=== PATIENT | female | born 1965 | race Hispanic/Latino ===

== ENCOUNTER 2016-08-30 14:22 | Emergency (ER) | payer MEDICAID, OTHER ==
[2016-08-30 14:22] VITALS: BMI 27.8
[2016-08-30] MEDS ORDERED: HYDROmorphone 1 mg/ml ISec IVP STA (15:20)
--- NOTE | 2016-08-30 15:29 | ED PDOC ---
Arrival/HPI - General Chief Complaint: Abdominal Pain Time Seen by Provider: 08/30/16 15:07 Historian: Patient - History of Present Illness Narrative History of Present Illness (Text): 08/30/16 15:23 51yo female with PMHx of hernia, diverticulosis, gastritis who present with abdominal pain worse around her hernia repair scar, radiating to her back. She notes 3 hernia repair surgery 2years ago. States she chronic pain in the area, but it became worse yesterday. Pain is associated with nausea. Notes that her BM is usually diarrhea like, but she had hard BM today. Also notes urinary frequency x days. She denies melena, hematemesis, hematochezia, fever, chills, hematuria, dysuria, vomiting, chest pain, any other complaint. Past Medical History - Provider Review Nursing Documentation Reviewed: Yes - Infectious Disease Hx of Infectious Diseases: None - Tetanus Immunization Tetanus Immunization: Unknown - Cardiac Hx Cardiac Disorders: No - Pulmonary Hx Asthma: Yes - Neurological Hx Neurological Disorder: No - HEENT Hx HEENT Disorder: No - Renal Hx Renal Disorder: No - Endocrine/Metabolic Hx Endocrine Disorders: No - Hematological/Oncological Hx Blood Disorders: No - Integumentary Hx Dermatological Disorder: No - Musculoskeletal/Rheumatological Hx Musculoskeletal Disorders: No - Gastrointestinal Hx Diverticulitis: Yes Hx Gastrointestinal Ulcer: Yes Hx Pancreatitis: Yes - Genitourinary/Gynecological Hx Genitourinary Disorders: No - Psychiatric Hx Anxiety: Yes Hx Depression: Yes Hx Substance Use: No - Surgical History Hx Cholecystectomy: Yes Other/Comment: colon resection - Anesthesia Hx Anesthesia: Yes - Suicidal Assessment Feels Threatened In Home Enviroment: No Family/Social History - Physician Review Nursing Documentation Reviewed: Yes Family/Social History: Unknown Family HX Smoking Status: Former Smoker Hx Alcohol Use: Yes Frequency of alcohol use: Socially Hx Substance Use: No Allergies/Home Meds Allergies/Adverse Reactions: Allergies amoxicillin Allergy (Severe, Verified 08/30/16 14:59) ANGIOEDEMA Home Medications: Home Meds Medication Instructions Recorded Confirmed Alprazolam [Xanax] 2 mg PO QID 09/26/14 08/30/16 Sertraline [Zoloft] 200 mg PO DAILY 09/26/14 08/30/16 Review of Systems - Physician Review All systems were reviewed & negative as marked: Yes - Review of Systems Constitutional: Normal Eyes: Normal ENT: Normal Respiratory: Normal Cardiovascular: Normal Gastrointestinal: Abdominal Pain, Nausea. absent: Constipation, Diarrhea, Vomiting, Hematochezia, Hematemesis Genitourinary Female: Normal Musculoskeletal: Normal Skin: Normal Neurological: Normal Endocrine: Normal Hemo/Lymphatic: Normal Psychiatric: Normal Physical Exam Vital Signs Reviewed: Yes Vital Signs Temp Pulse Resp BP Pulse Ox 08/30/16 16:44 98.1 F 69 18 106/75 98 08/30/16 15:48 75 17 104/79 98 08/30/16 15:00 98.2 F 90 17 110/73 97 Temperature: Afebrile Blood Pressure: Normal Pulse: Regular Respiratory Rate: Normal Appearance: Positive for: Well-Appearing, Non-Toxic, Comfortable Pain Distress: None Mental Status: Positive for: Alert and Oriented X 3 - Systems Exam Head: Present: Atraumatic, Normocephalic Pupils: Present: PERRL Extroacular Muscles: Present: EOMI Conjunctiva: Present: Normal Mouth: Present: Moist Mucous Membranes Neck: Present: Normal Range of Motion Respiratory/Chest: Present: Clear to Auscultation, Good Air Exchange. No: Respiratory Distress, Accessory Muscle Use Cardiovascular: Present: Regular Rate and Rhythm, Normal S1, S2. No: Murmurs Abdomen: Present: Tenderness (RUQ/Mid abodminal and epigastric tenderness), Normal Bowel Sounds, Scars (3 healed surgical scars ntoed. No sign of infection) , Other (Soft). No: Distention, Peritoneal Signs, Rebound, Guarding, McBurney' s Point Tender, Rovsing's Sign Present Back: Present: Normal Inspection Upper Extremity: Present: Normal Inspection. No: Cyanosis, Edema Lower Extremity: Present: Normal Inspection. No: Edema Neurological: Present: GCS=15, CN II-XII Intact, Speech Normal Skin: Present: Warm, Dry, Normal Color. No: Rashes Psychiatric: Present: Alert, Oriented x 3, Normal Insight, Normal Concentration Medical Decision Making ED Course and Treatment: 08/30/16 16:50 PT presented to ED for stated history. Her pain improved in ED with medication. she was comfortable and hemodynamically stable. Her lab was unremarkable. Elevated LFT was comparable to her previous lab. Abdominal/ Pelvic CT - No acute finding. All result was DW the pt. she was DC home with a rx of Pepcid and Tramadol. She states that she have a GI and was advised to f/u with her GI for further outpt evaluation. Advised to otherwise return to ED for any worsening or new symptoms. - Lab Interpretations Lab Results: 08/30/16 15:25 08/30/16 15:25 Lab Results 08/30/16 15:25: Sodium 139, Potassium 3.8, Chloride 106, Carbon Dioxide 27, Anion Gap 10, BUN 16, Creatinine 1.0, Est GFR ( Amer) > 60, Est GFR (Non- Af Amer) 59, Random Glucose 100, Calcium 9.0, Total Bilirubin 0.4, AST 63 H, ALT 70 H, Alkaline Phosphatase 82, Total Protein 7.3, Albumin 3.9, Globulin 3.4 , Albumin/Globulin Ratio 1.1 08/30/16 15:25: Urine Color Yellow, Urine Appearance Clear, Urine pH 5.5, Ur Specific [place] >= 1.030, Urine Protein Negative, Urine Glucose (UA) Negative, Urine Ketones Negative, Urine Blood Negative, Urine Nitrate Negative, Urine Bilirubin Negative, Urine Urobilinogen 0.2, Ur Leukocyte Esterase Negative 08/30/16 15:25: PT 10.7, INR 0.99, APTT 27.0 08/30/16 15:25: WBC 8.0 D, RBC 4.02, Hgb 11.8 L, Hct 34.7 L, MCV 86.3, MCH 29.4 , MCHC 34.0, RDW 13.1, Plt Count 225, MPV 9.3, Gran % 71.6 H, Lymph % (Auto) 18.7 L, [place] % (Auto) 7.7 H, Eos % (Auto) 1.6, Baso % (Auto) 0.4, Gran # 5.75, Lymph # 1.5, [place] # 0.6, Eos # 0.1, Baso # 0.03 - RAD Interpretation Radiology Orders: 08/30/16 15:19 ABD & PELVIS W/O PO OR IV CONT [CT] Stat - Medication Orders Current Medication Orders: Discontinued Medications Hydromorphone HCl (Dilaudid) 1 mg IVP STAT STA Stop: 08/30/16 15:21 Last Admin: 08/30/16 15:50 Dose: 1 mg Ondansetron HCl (Zofran Inj) 4 mg IVP STAT STA Stop: 08/30/16 15:21 Last Admin: 08/30/16 15:51 Dose: 4 mg Disposition/Present on Arrival - Present on Arrival Any Indicators Present on Arrival: No History of DVT/PE: No History of Uncontrolled Diabetes: No Urinary Catheter: No History of Decub. Ulcer: No History Surgical Site Infection Following: None - Disposition Have Diagnosis and Disposition been Completed?: Yes Diagnosis: Abdominal pain Disposition: HOME/ ROUTINE Disposition Time: 16:30 Patient Plan: Discharge Patient Problems: Current Active Problems Problem Status Onset Abdominal pain Acute Condition: STABLE Discharge Instructions (ExitCare): Abdominal Pain (ED) Additional Instructions: Follow up with your doctor/[employer] Return to ED for any new or worsening symptoms Prescriptions: Famotidine [Pepcid] 40 mg PO DAILY #10 tab traMADol [Ultram] 50 mg PO TID #9 tab Referrals: Ranjith Emery MD [Primary Care Provider] - Follow up with primary Francis Holley MD [Staff Provider] - Follow up with primary
[2016-08-30 15:57] LABS: ADD MANUAL DIFF? NO
[2016-08-30 15:59] LABS: PH,URINE 5.5 (4.7-8.0); URINE BILIRUBIN NEGATIVE (NEGATIVE); URINE BLOOD NEGATIVE (NEGATIVE); URINE GLUCOSE (UA) NEGATIVE (NEGATIVE); URINE KETONE NEGATIVE (NEGATIVE); URINE LEUKOCYTE ESTERASE NEGATIVE Leu/uL (NEGATIVE); URINE PROTEIN NEGATIVE mg/dL (<30 mg/dL); URINE UROBILINOGEN 0.2 E.U./dL (<1 E.U./dL)
[2016-08-30 16:01] LABS: URINE APPEARANCE CLEAR (CLEAR); URINE COLOR YELLOW (YELLOW)
[2016-08-30 16:03] LABS: BASO # 0.03 K/mm3 (0.0-2.0); BASO % 0.4 % (0.0-3.0); EOS # 0.1 (0.0-0.7); EOS % 1.6 % (1.5-5.0); GRAN # 5.75 (1.4-6.5); GRAN % 71.6 % (50.0-68.0); HEMATOCRIT 34.7 % (36.0-48.0); LYMPH # 1.5 (1.2-3.4); LYMPH % 18.7 % (22.0-35.0); MEAN CELL VOLUME 86.3 fL (80.0-105.0); MEAN CORPUSCULAR HEMOGLOBIN 29.4 pg (25.0-35.0); MEAN PLATELET VOLUME 9.3 fl (7.0-11.0); MONO # 0.6 (0.1-0.6); MONO % 7.7 % (1.0-6.0); PLATELET COUNT 225 10^3/uL (120.0-450.0); RED CELL DISTRIBUTION WIDTH 13.1 % (11.5-14.5)
[2016-08-30 16:13] LABS: ALB/GLOB RATIO 1.1 (1.1-1.8); ALKALINE PHOSPHATASE 82 U/L (38-133); ALT/SGPT 70 U/L (7-56); AST/SGOT 63 U/L (15-39); BILIRUBIN,TOTAL 0.4 mg/dL (0.2-1.3); BLOOD UREA NITROGEN 16 mg/dL (7-21); CARBON DIOXIDE 27 mmol/L (21-33); CHLORIDE 106 mmol/L (98-107); GFR AFRICAN-AMERICAN > 60; GLUCOSE,RANDOM 100 mg/dL (70-110); POTASSIUM 3.8 mmol/L (3.6-5.0); SODIUM 139 mmol/L (132-148); TOTAL PROTEIN 7.3 g/dL (5.8-8.3)
[2016-08-30 16:18] LABS: INR 0.99 (0.93-1.08)
--- NOTE | 2016-08-30 16:26 | CT ---
PROCEDURE: CT Abdomen and Pelvis without intravenous contrast HISTORY: abdominal pain COMPARISON: None. TECHNIQUE: Without contrast.. Contrast Dose: Radiation dose: Total exam DLP = 890 mGy-cm. This CT exam was performed using one or more of the following dose reduction techniques: Automated exposure control, adjustment of the mA and/or kV according to patient size, and/or use of iterative reconstruction technique. FINDINGS: LOWER THORAX: Unremarkable. LIVER: Unremarkable. No gross lesion or ductal dilatation. GALLBLADDER AND BILE DUCTS: Gallbladder removed PANCREAS: Unremarkable. No gross lesion or ductal dilatation. SPLEEN: Unremarkable. ADRENALS: Unremarkable. No mass. KIDNEYS AND URETERS: Unremarkable. No hydronephrosis. No solid mass. VASCULATURE: Unremarkable. No aortic aneurysm. BOWEL: Unremarkable. No obstruction. No gross mural thickening. There is moderate diverticulosis without evidence of diverticulitis APPENDIX: Unremarkable. Normal appendix. PERITONEUM: Unremarkable. No free fluid. No free air. LYMPH NODES: Unremarkable. No enlarged lymph nodes. BLADDER: Unremarkable. REPRODUCTIVE: Unremarkable. BONES: No acute fracture. OTHER FINDINGS: None. IMPRESSION: No acute findings
[2016-08-30 16:45] VITALS: TEMP 98.1
[2016-08-30 17:46] VITALS: BP 112/70; PULSE 70; RESP 17; O2SAT 100
== END 2016-08-30 17:44 | disposition home or self-care (01) ==
LOC: ED 14:22
DX: R10.9 Unspecified abdominal pain (principal)
CPT/HCPCS: 74176; 80053; 81003; 85025; 85610; 85730; 96374; 96375; 99284; J1170; J2405

== ENCOUNTER 2016-09-24 10:51 | Emergency (ER) | payer OTHER ==
[2016-09-24 10:51] VITALS: BMI 27.8
[2016-09-24 10:58] VITALS: BP 123/81; PULSE 94; RESP 16; TEMP 98.1; O2SAT 96
--- NOTE | 2016-09-24 11:23 | ED PDOC ---
Arrival/HPI - General Chief Complaint: Lower Extremity Problem/Injury Time Seen by Provider: 09/24/16 11:19 Historian: Patient - History of Present Illness Narrative History of Present Illness (Text): 09/24/16 11:20 This 51 yo female presents to this ED c/o left ankle pain and swelling x 9 hours. Patient stated she twisted ankle. Denies fall. Time/Duration: Other (9 hours) Quality: Aching Context: Home Past Medical History - Provider Review Nursing Documentation Reviewed: Yes - Infectious Disease Hx of Infectious Diseases: None - Tetanus Immunization Tetanus Immunization: Unknown - Cardiac Hx Cardiac Disorders: No - Pulmonary Hx Asthma: Yes - Neurological Hx Neurological Disorder: No - HEENT Hx HEENT Disorder: No - Renal Hx Renal Disorder: No - Endocrine/Metabolic Hx Endocrine Disorders: No - Hematological/Oncological Hx Blood Disorders: No - Integumentary Hx Dermatological Disorder: No - Musculoskeletal/Rheumatological Hx Musculoskeletal Disorders: No - Gastrointestinal Hx Diverticulitis: Yes Hx Gastrointestinal Ulcer: Yes Hx Pancreatitis: Yes - Genitourinary/Gynecological Hx Genitourinary Disorders: No - Psychiatric Hx Anxiety: Yes Hx Depression: Yes Hx Substance Use: No - Surgical History Hx Cholecystectomy: Yes Other/Comment: colon resection - Anesthesia Hx Anesthesia: Yes - Suicidal Assessment Feels Threatened In Home Enviroment: No Family/Social History - Physician Review Nursing Documentation Reviewed: Yes Family/Social History: No Known Family HX Smoking Status: Former Smoker Hx Alcohol Use: Yes Hx Substance Use: No Allergies/Home Meds Allergies/Adverse Reactions: Allergies amoxicillin Allergy (Severe, Verified 09/24/16 10:52) ANGIOEDEMA Home Medications: Home Meds Medication Instructions Recorded Confirmed Alprazolam [Xanax] 2 mg PO QID 09/26/14 09/24/16 Sertraline [Zoloft] 200 mg PO DAILY 09/26/14 09/24/16 Levocetirizine Dihydrochloride 1 tab PO DAILY 09/24/16 09/24/16 [Xyzal] Review of Systems - Review of Systems Constitutional: Normal. absent: Fatigue, Weight Change, Fevers Eyes: Normal ENT: Normal Respiratory: Normal Cardiovascular: Normal Gastrointestinal: Normal Genitourinary Female: Normal Musculoskeletal: Other (left ankle pain) Skin: Normal Neurological: Normal Endocrine: Normal Hemo/Lymphatic: Normal Psychiatric: Normal Physical Exam Vital Signs Temp Pulse Resp BP Pulse Ox 09/24/16 10:55 98.1 F 94 H 16 123/81 96 Temperature: Afebrile Blood Pressure: Normal Pulse: Regular Respiratory Rate: Normal Appearance: Positive for: Well-Appearing, Non-Toxic, Comfortable Pain Distress: None Mental Status: Positive for: Alert and Oriented X 3 - Systems Exam Head: Present: Atraumatic, Normocephalic Pupils: Present: PERRL Extroacular Muscles: Present: EOMI Conjunctiva: Present: Normal Mouth: Present: Moist Mucous Membranes Back: Present: Normal Inspection. No: CVA Tenderness Upper Extremity: Present: Normal Inspection, Normal ROM, NORMAL PULSES, Neurovascularly Intact, Capillary Refill < 2s Lower Extremity: Present: NORMAL PULSES, Normal ROM, Tenderness, Swelling ((+) left lateral malleoulus is mild swelling, and tender. No deformity). No: Edema , CALF TENDERNESS Neurological: Present: GCS=15, CN II-XII Intact, Speech Normal, Motor Func Grossly Intact, Normal Sensory Function, Normal Cerebellar Funct, Gait Normal Skin: Present: Warm, Dry, Normal Color. No: Rashes Psychiatric: Present: Alert, Oriented x 3 Medical Decision Making ED Course and Treatment: 09/24/16 11:23 Patient refused Toradol IM. She stated that Dilaudid is the only medication that works for her 09/24/16 11:51 Re-evaluation. Patient feels better. Discussed results and plan with patient who expresses understanding. All questions answered and there is agreement with the plan to discharge home with instructions. Patient stable for discharge. Return if symptoms persist or worsen. Air cast and crutches Re-evaluation Time: 11:52 Reassessment Condition: Re-examined, Improved - RAD Interpretation Narrative RAD Interpretations (Text): 09/24/16 11:52 ankle x-rays: No Fx. or sublux. Tib Fib x-rays: No fx or sublux. Radiology Orders: 09/24/16 11:24 ANKLE LEFT 3 VIEWS ROUTINE [RAD] Stat TIBIA FIBULA LEFT [RAD] Stat - Medication Orders Current Medication Orders: Discontinued Medications Tramadol/Acetaminophen (Ultracet 37.5/325 Mg) 1 tab PO STAT STA Stop: 09/24/16 11:26 Last Admin: 09/24/16 11:44 Dose: 1 tab Disposition/Present on Arrival - Present on Arrival Any Indicators Present on Arrival: No History of DVT/PE: No History of Uncontrolled Diabetes: No Urinary Catheter: No History of Decub. Ulcer: No History Surgical Site Infection Following: None - Disposition Have Diagnosis and Disposition been Completed?: Yes Diagnosis: Left ankle strain Disposition: HOME/ ROUTINE Disposition Time: 11:53 Patient Plan: Discharge Condition: GOOD Discharge Instructions (ExitCare): Ankle Sprain (ED) Additional Instructions: Call private doctor for follow up visit in 1-2 days. Take medication as instructed. v Return to emergency if symptoms worsen. air cast to be removed at bedtime. Prescriptions: Acetaminophen with Codeine [Tylenol with Codeine #3 Tablet] 1 each PO Q6H PRN # 10 tablet PRN Reason: Pain, Severe (8-10) Referrals: Ranjith Emery MD [Primary Care Provider] - Follow up with primary Jenna Mijares DPM [Staff Provider] - Follow up with primary Forms: WORK NOTE
[2016-09-24] MEDS ORDERED: TraMADol/Apap 37.5/325 mg Tab PO STA (11:25)
--- NOTE | 2016-09-24 12:21 | RAD ---
PROCEDURE: Left Ankle Radiographs. HISTORY: Pain COMPARISON: None FINDINGS: BONES: Bone alignment and mineralization are normal. There is no acute fracture or bone destruction. JOINTS: Normal. No osteoarthritis. Ankle mortise maintained. Talar dome intact SOFT TISSUES: Normal. OTHER FINDINGS: None. IMPRESSION: Normal examination.
--- NOTE | 2016-09-24 12:21 | RAD ---
PROCEDURE: Radiographs of the left tibia and fibula. HISTORY: Pain COMPARISON: None available. TECHNIQUE: Frontal and lateral views obtained. FINDINGS: BONES: No fracture or destructive lesion. Bone alignment and mineralization are normal. JOINT SPACES: Unremarkable. OTHER FINDINGS: None. IMPRESSION: No acute fracture or bone destruction.
== END 2016-09-24 12:23 | disposition home or self-care (01) ==
LOC: ED 10:51
DX: S96.912A Strain of unspecified muscle and tendon at ankle and foot level, left foot, initial encounter (principal); X50.0XXA Overexertion from strenuous movement or load, initial encounter; Y93.89 Activity, other specified; Y92.89 Other specified places as the place of occurrence of the external cause

== ENCOUNTER 2016-10-20 15:52 | Emergency (ER) | payer OTHER ==
[2016-10-20 16:37] VITALS: BMI 30.2
[2016-10-20 16:40] VITALS: TEMP 98.7
--- NOTE | 2016-10-20 19:19 | ED PDOC ---
Arrival/HPI - General Chief Complaint: Lower Extremity Problem/Injury Time Seen by Provider: 10/20/16 17:31 Historian: Patient - History of Present Illness Narrative History of Present Illness (Text): 10/20/16 21:10 51-year-old female presents today with left ankle pain has been worsening over the past 3 days. Patient states 3 weeks ago she twisted and injured that same left ankle and had x-rays which were normal. Patient states she has been getting around walking on the ankle and standing on her feet regularly. Patient states she doesn't know what happened recently but the pain has suddenly worsened. Patient states the pain is now along the medial and anterior aspects of the ankle. Patient states the pain radiates into the foot. She denies numbness weakness or tingling in the extremity. Denies calf pain. Denies fevers or chills. No other complaints Time/Duration: Other (3 days) Symptom Onset: Gradual Symptom Course: Worsening Quality: Aching Severity Level: 5 Past Medical History - Provider Review Nursing Documentation Reviewed: Yes - Travel History Have you recently traveled outside [place] w/in the past 3 mons?: No - Infectious Disease Hx of Infectious Diseases: None - Tetanus Immunization Tetanus Immunization: Unknown - Cardiac Hx Cardiac Disorders: No - Pulmonary Hx Asthma: Yes - Neurological Hx Neurological Disorder: No - HEENT Hx HEENT Disorder: No - Renal Hx Renal Disorder: No - Endocrine/Metabolic Hx Endocrine Disorders: No - Hematological/Oncological Hx Blood Disorders: No - Integumentary Hx Dermatological Disorder: No - Musculoskeletal/Rheumatological Hx Musculoskeletal Disorders: No - Gastrointestinal Hx Diverticulitis: Yes Hx Gastrointestinal Ulcer: Yes Hx Pancreatitis: Yes - Genitourinary/Gynecological Hx Genitourinary Disorders: No - Psychiatric Hx Anxiety: Yes Hx Depression: Yes Hx Substance Use: No - Surgical History Hx Cholecystectomy: Yes Other/Comment: colon resection - Anesthesia Hx Anesthesia: Yes Hx Anesthesia Reactions: No Hx Malignant Hyperthermia: No - Suicidal Assessment Feels Threatened In Home Enviroment: No Family/Social History - Physician Review Nursing Documentation Reviewed: Yes Family/Social History: Unknown Family HX Smoking Status: Former Smoker Hx Alcohol Use: Yes Hx Substance Use: No Allergies/Home Meds Allergies/Adverse Reactions: Allergies amoxicillin Allergy (Severe, Verified 09/24/16 10:52) ANGIOEDEMA Home Medications: Home Meds Medication Instructions Recorded Confirmed Alprazolam [Xanax] 2 mg PO QID 09/26/14 10/20/16 Sertraline [Zoloft] 200 mg PO DAILY 09/26/14 10/20/16 Levocetirizine Dihydrochloride 1 tab PO DAILY 09/24/16 10/20/16 [Xyzal] Review of Systems - Review of Systems Constitutional: absent: Fatigue, Fevers Respiratory: absent: SOB, Cough Cardiovascular: absent: Chest Pain, Palpitations Gastrointestinal: absent: Abdominal Pain Musculoskeletal: Arthralgias. absent: Back Pain, Neck Pain Skin: absent: Rash, Pruritis Neurological: absent: Headache Physical Exam Vital Signs Reviewed: Yes Vital Signs Temp Pulse Resp BP Pulse Ox 10/20/16 19:29 60 14 126/77 99 10/20/16 16:40 98.7 F 66 18 118/80 98 Temperature: Afebrile Blood Pressure: Normal Pulse: Regular Respiratory Rate: Normal Appearance: Positive for: Well-Appearing, Non-Toxic, Comfortable Pain Distress: None Mental Status: Positive for: Alert and Oriented X 3 - Systems Exam Head: Present: Atraumatic Neck: Present: Normal Range of Motion Respiratory/Chest: Present: Clear to Auscultation, Good Air Exchange. No: Respiratory Distress, Accessory Muscle Use Cardiovascular: Present: Regular Rate and Rhythm, Normal S1, S2. No: Murmurs Lower Extremity: Present: NORMAL PULSES, Normal ROM, Tenderness (left ankle; + ttp over anterior and medial aspect of ankle; + edema, no erythema; no ecchymosis; full rom of ankle; sensation and distal pulses intact; cap refill < 2. no achilles tendon tenderness, no void. + ttp over dorsal aspect of foot just adjacent to ankle. ), Swelling, Neurovascularly Intact, Capillary Refill < 2 s. No: CALF TENDERNESS, Erythema, Deformity, Temperature Abnormalties Neurological: Present: GCS=15 Skin: Present: Warm, Dry, Normal Color. No: Rashes Psychiatric: Present: Alert, Oriented x 3 Medical Decision Making ED Course and Treatment: 10/20/16 21:13 Patient nontoxic well-appearing in no distress with stable vital signs X-rays of the left ankle: No fracture X-rays of the left foot: No fracture Toradol given for pain Patient placed in short leg posterior splint crutches given for ambulation. I discussed all results in depth with the patient advised to followup with the orthopedist within the next 2 days. Advised return if symptoms worsen persist or new symptoms develop i advised the patient that although the xrays show no fracture; there is still a possibility for ligamentous or tendon injury the patient must see the orthopedist for further evaluation. Patient verbalizes understanding of discharge instructions and need for immediate followup. Impression: Ankle pain Motrin every 6 hours as needed for pain Rest, ice, compression, elevation Use crutches for ambulation Followup with the orthopedist within the next 2 days Followup with primary care physician within the next 2 days Return if symptoms worsen persist or if new symptoms develop - RAD Interpretation Radiology Orders: 10/20/16 17:42 ANKLE LEFT 3 VIEWS ROUTINE [RAD] Stat FOOT LEFT 3 VIEWS ROUTINE [RAD] Stat - Medication Orders Current Medication Orders: Discontinued Medications Ketorolac Tromethamine (Toradol) 60 mg IM STAT STA Stop: 10/20/16 17:43 Last Admin: 10/20/16 17:59 Dose: 60 mg Re-Assess: [facility] Pain Assessment Document 10/20/16 18:59 GABY (Rec: 10/20/16 19:20 GABY [id number]) Pain Reassessment Is this a pain reassessment? No Sleep Is patient sleeping during reassessment? No Presence of Pain Presence of Pain Yes Pain Scale Used Pain Scale Used Numeric Description Description Intermittent Intensity of Pain at present 4 Procedures - Splinting Location: left ankle Hand-Made Type: fiberglass Splint: shortleg posterior splint Pre-Proc Neuro Vasc Exam: normal Post-Proc Neuro Vasc Exam: normal Disposition/Present on Arrival - Present on Arrival Any Indicators Present on Arrival: No History of DVT/PE: No History of Uncontrolled Diabetes: No Urinary Catheter: No History of Decub. Ulcer: No History Surgical Site Infection Following: None - Disposition Have Diagnosis and Disposition been Completed?: Yes Diagnosis: Ankle pain, Foot pain Disposition: HOME/ ROUTINE Disposition Time: 19:17 Patient Plan: Discharge Condition: GOOD Discharge Instructions (ExitCare): Arthralgia (ED) Additional Instructions: Motrin every 6 hours as needed for pain tylenol #3; 1 tablet every 6 hours as needed for moderate to severe pain; may cause drowsiness. Rest, ice, compression, elevation Use crutches for ambulation Followup with the orthopedist within the next 2 days Followup with primary care physician within the next 2 days Return if symptoms worsen persist or if new symptoms develop Prescriptions: Acetaminophen/Codeine [Tylenol/Codeine 300 MG/30 MG] 1 tab PO Q6H PRN #6 tab PRN Reason: Pain, Severe Ibuprofen [Motrin] 600 mg PO Q6H PRN #20 tab PRN Reason: pain/fever reduction Referrals: Ranjith Emery MD [Primary Care Provider] - Follow up with primary Jefferson Hardy MD [Staff Provider] - Follow up with primary [facility] [Outside] - Follow up with primary Forms: WORK NOTE
[2016-10-20 19:29] VITALS: BP 126/77; PULSE 60; RESP 14; O2SAT 99
--- NOTE | 2016-10-21 08:37 | RAD ---
PROCEDURE: Left Foot Radiographs. HISTORY: ankle pain/foot pain COMPARISON: None. FINDINGS: BONES: Normal. No fracture. JOINTS: Normal. SOFT TISSUES: Normal. OTHER FINDINGS: None. IMPRESSION: Normal left foot radiographs.
--- NOTE | 2016-10-21 08:38 | RAD ---
PROCEDURE: Left Ankle Radiographs. HISTORY: ankle/foot pain COMPARISON: None FINDINGS: BONES: Normal. No fracture. JOINTS: Normal. No osteoarthritis. Ankle mortise maintained. Talar dome intact SOFT TISSUES: Normal. OTHER FINDINGS: None. IMPRESSION: Normal left ankle radiographs.
== END 2016-10-20 19:31 | disposition home or self-care (01) ==
LOC: ED 15:52
DX: M25.572 Pain in left ankle and joints of left foot (principal)
CPT/HCPCS: 73610; 73630; 96372; 99284; J1885

== ENCOUNTER 2017-04-21 12:44 | Emergency (ER) | payer OTHER ==
[2017-04-21 12:44] VITALS: BMI 27.8
[2017-04-21 13:24] VITALS: TEMP 98.5
[2017-04-21] MEDS ORDERED: Oxycodone/Acetaminophen 5/325 mg Tab PO STA (14:16)
--- NOTE | 2017-04-21 15:28 | RAD ---
PROCEDURE: Radiographs of the Left Shoulder HISTORY: left shoulder pain. limited abduction COMPARISON: No prior. FINDINGS: BONES: Normal. No fracture. JOINTS: Normal. Glenohumeral and acromioclavicular joints preserved. No osteoarthritis. SOFT TISSUES: Normal. OTHER FINDINGS: None. IMPRESSION: Normal radiographs of the left shoulder.
[2017-04-21 15:46] VITALS: O2SAT 99
--- NOTE | 2017-04-21 15:59 | ED PDOC ---
Arrival/HPI - General Historian: Patient - History of Present Illness Time/Duration: > week (2 weeks) <Madison Gray - Last Filed: 04/21/17 18:29> <Shahana Martinezankit - Last Filed: 04/21/17 22:15> - General Chief Complaint: Upper Extremity Problem/Injury Time Seen by Provider: 04/21/17 14:14 - History of Present Illness Narrative History of Present Illness (Text): 04/21/17 16:03 51-year-old female presents today with a 2 week history of left-sided shoulder pain. Patient denies any trauma or injury. Patient denies fevers or chills. Patient states that for the past 2 weeks she is having pain with attempted abduction of the shoulder. Patient denies chest pain or shortness of breath. Denies dizziness or weakness. Patient states she's been taking Tylenol without improvement in her symptoms. Patient denies numbness weakness or tingling in the extremity. No other complaints (Madison Gray) Past Medical History - Provider Review Nursing Documentation Reviewed: Yes - Travel History Have you recently traveled outside [place] w/in the past 3 mons?: No - Infectious Disease Hx of Infectious Diseases: None - Tetanus Immunization Tetanus Immunization: Unknown - Reproductive Menopause: Yes - Cardiac Hx Cardiac Disorders: No - Pulmonary Hx Asthma: Yes - Neurological Hx Neurological Disorder: No - HEENT Hx HEENT Disorder: No - Renal Hx Renal Disorder: No - Endocrine/Metabolic Hx Endocrine Disorders: No - Hematological/Oncological Hx Blood Disorders: No - Integumentary Hx Dermatological Disorder: No - Musculoskeletal/Rheumatological Hx Musculoskeletal Disorders: No - Gastrointestinal Hx Diverticulitis: Yes Hx Gastrointestinal Ulcer: Yes Hx Pancreatitis: Yes - Genitourinary/Gynecological Hx Genitourinary Disorders: No - Psychiatric Hx Anxiety: Yes Hx Depression: Yes Hx Substance Use: No - Surgical History Hx Cholecystectomy: Yes Other/Comment: colon resection - Anesthesia Hx Anesthesia: Yes Hx Anesthesia Reactions: No Hx Malignant Hyperthermia: No - Suicidal Assessment Feels Threatened In Home Enviroment: No <Madison Gray - Last Filed: 04/21/17 18:29> Family/Social History - Physician Review Nursing Documentation Reviewed: Yes Family/Social History: Unknown Family HX Smoking Status: Former Smoker Hx Alcohol Use: Yes Hx Substance Use: No <Madison Gray - Last Filed: 04/21/17 18:29> Allergies/Home Meds <Madison Gray - Last Filed: 04/21/17 18:29> <Jana Martinez - Last Filed: 04/21/17 22:15> Allergies/Adverse Reactions: Allergies amoxicillin Allergy (Severe, Verified 04/21/17 13:25) ANGIOEDEMA Home Medications: Home Meds Medication Instructions Recorded Confirmed Sertraline [Zoloft] 200 mg PO DAILY 09/26/14 04/21/17 Levocetirizine Dihydrochloride 1 tab PO DAILY 09/24/16 04/21/17 [Xyzal] Alprazolam [Xanax] 8 mg PO QID 04/21/17 04/21/17 Atorvastatin [Lipitor] 40 mg PO DAILY 04/21/17 04/21/17 Lactobacillus Acidophilus 0 mg PO 04/21/17 [Acidophilus Probiotic] Review of Systems - Review of Systems Constitutional: absent: Fatigue, Fevers Respiratory: absent: SOB, Cough Cardiovascular: absent: Chest Pain, Palpitations Gastrointestinal: absent: Abdominal Pain, Nausea, Vomiting Musculoskeletal: Arthralgias. absent: Back Pain, Neck Pain Skin: absent: Rash, Pruritis Neurological: absent: Headache, Dizziness Psychiatric: absent: Anxiety, Depression <Madison Gray - Last Filed: 04/21/17 18:29> Physical Exam Vital Signs Reviewed: Yes Temperature: Afebrile Blood Pressure: Normal Pulse: Regular Respiratory Rate: Normal Appearance: Positive for: Well-Appearing, Non-Toxic, Comfortable Pain Distress: None Mental Status: Positive for: Alert and Oriented X 3 - Systems Exam Head: Present: Atraumatic Mouth: Present: Moist Mucous Membranes Neck: Present: Normal Range of Motion, Trachea Midline. No: MIDLINE TENDERNESS , Paraspinal Tenderness Respiratory/Chest: Present: Clear to Auscultation, Good Air Exchange. No: Respiratory Distress, Accessory Muscle Use Cardiovascular: Present: Regular Rate and Rhythm, Normal S1, S2. No: Murmurs Back: Present: Normal Inspection Upper Extremity: Present: NORMAL PULSES, Tenderness (left shoulder; + point tenderness over lateral aspect of humerus head; no edema, no erythema; limited abduction of shoulder; sensation and distal pulses intact; cap refill <2. ), Neurovascularly Intact, Capillary Refill < 2s. No: Normal ROM, Swelling, Erythema, Deformity Neurological: Present: GCS=15, Speech Normal, Normal Sensory Function Skin: Present: Warm, Dry, Normal Color. No: Rashes Psychiatric: Present: Alert, Oriented x 3 <Madison Gray - Last Filed: 04/21/17 18:29> Vital Signs Temp Pulse Resp BP Pulse Ox 04/21/17 16:04 71 18 115/72 99 04/21/17 15:45 70 17 112/70 99 04/21/17 13:20 98.5 F 56 L 18 110/69 100 Medical Decision Making <Madison Gray - Last Filed: 04/21/17 18:29> <Jana Martinez - Last Filed: 04/21/17 22:15> ED Course and Treatment: 04/21/17 16:07 Patient nontoxic well-appearing in no distress with stable vital signs Patient with a 2 week history of left-sided shoulder pain with limited abduction , with point tenderness over the lateral aspect of the humeral head. X-rays of the left shoulder: No fracture As read by the radiologist Percocet given by mouth pt reassessment; pt feeling better after medications. 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 advised tylenol PO. advised ice. stressed importance of continued rom of shoulder to avoid frozen shoulder. I discussed all results with patient advised to followup with the orthopedist for the next 2 days. Return if symptoms worsen persist or new symptoms develop i advised the patient that although the xrays show no fracture; there is still a possibility for ligamentous or tendon injury the patient must see the orthopedist for further evaluation. Patient verbalizes understanding of discharge instructions and need for immediate followup. all aspects of this case were discussed the attending of record. Impression: shoulder pain Baclofen: 1 tablet every 8 hours as needed for moderate to severe pain. may cause drowsiness. Rest, ice, compression, elevation Followup with the orthopedist within the next 2 days Followup with primary care physician within the next 2 days Return if any other concerning symptoms develop (Madison Gray) - RAD Interpretation Radiology Orders: 04/21/17 14:16 SHOULDER LEFT [RAD] Stat - Medication Orders Current Medication Orders: Discontinued Medications Oxycodone/Acetaminophen (Percocet 5/325 Mg Tab) 1 tab PO STAT STA Stop: 04/21/17 14:17 Last Admin: 04/21/17 14:34 Dose: 1 tab MAR Pain Assessment Document 04/21/17 14:34 VIELKA (Rec: 04/21/17 14:35 VIELKA [id number]) Pain Reassessment Is this a pain reassessment? No Sleep Is patient sleeping during reassessment? 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 <Jana Martinez - Last Filed: 04/21/17 22:15> Disposition/Present on Arrival - Present on Arrival Any Indicators Present on Arrival: No History of DVT/PE: No History of Uncontrolled Diabetes: No Urinary Catheter: No History of Decub. Ulcer: No History Surgical Site Infection Following: None - Disposition Have Diagnosis and Disposition been Completed?: Yes Disposition Time: 15:55 Patient Plan: Discharge <Madison Gray - Last Filed: 04/21/17 18:29> <Jana Martinez - Last Filed: 04/21/17 22:15> - Disposition Diagnosis: Shoulder pain Disposition: HOME/ ROUTINE Condition: GOOD Discharge Instructions (ExitCare): Shoulder Pain (ED) Additional Instructions: Baclofen: 1 tablet every 8 hours as needed for moderate to severe pain. may cause drowsiness. Rest, ice, compression, elevation Followup with the orthopedist within the next 2 days Followup with primary care physician within the next 2 days Return if any other concerning symptoms develop Prescriptions: Baclofen [Lioresal] 10 mg PO Q8H PRN #10 tab PRN Reason: muscle spasms Referrals: Ranjith Emery MD [Primary Care Provider] - Follow up with primary Steve Garcia MD [Staff Provider] - Follow up with primary Forms: [employer] (I[place]qi), WORK NOTE
[2017-04-21 16:05] VITALS: BP 115/72; PULSE 71; RESP 18
== END 2017-04-21 16:06 | disposition home or self-care (01) ==
LOC: ED 12:44
DX: M25.512 Pain in left shoulder (principal)

== ENCOUNTER 2017-04-30 05:11 | Emergency (ER) | payer MEDICAID, OTHER ==
[2017-04-30 05:12] VITALS: BMI 27.8
--- NOTE | 2017-04-30 05:45 | ED PDOC ---
Arrival/HPI - General Chief Complaint: Headache Time Seen by Provider: 04/30/17 05:24 Historian: Patient - History of Present Illness Narrative History of Present Illness (Text): 04/30/17 05:44 Oksana Luo is a 51 year old female, whose past medical history includes asthma, diverticulitis,migraines who presents to the Emergency department complaining of subjective fever with associated chills, cough, nausea, vomiting, abdominal discomfort and diarrhea since yesterday. Patient also reports a headache, which she states is consistent with previous migraine headaches. Patient denies any chest pain, shortness of breath, urinary symptoms , back pain, neck pain, headache, dizziness, or any other complaints. Time/Duration: Other (yesterday) Symptom Onset: Gradual Symptom Course: Unchanged Activities at Onset: Light Context: Home Past Medical History - Provider Review Nursing Documentation Reviewed: Yes - Infectious Disease Hx of Infectious Diseases: None - Tetanus Immunization Tetanus Immunization: Unknown - Cardiac Hx Cardiac Disorders: No - Pulmonary Hx Asthma: Yes - Neurological Hx Neurological Disorder: No - HEENT Hx HEENT Disorder: No - Renal Hx Renal Disorder: No - Endocrine/Metabolic Hx Endocrine Disorders: No - Hematological/Oncological Hx Blood Disorders: No - Integumentary Hx Dermatological Disorder: No - Musculoskeletal/Rheumatological Hx Musculoskeletal Disorders: No - Gastrointestinal Hx Diverticulitis: Yes Hx Gastrointestinal Ulcer: Yes Hx Pancreatitis: Yes - Genitourinary/Gynecological Hx Genitourinary Disorders: No - Psychiatric Hx Anxiety: Yes Hx Depression: Yes Hx Substance Use: No - Surgical History Hx Cholecystectomy: Yes Other/Comment: colon resection - Anesthesia Hx Anesthesia: Yes Hx Anesthesia Reactions: No Hx Malignant Hyperthermia: No - Suicidal Assessment Feels Threatened In Home Enviroment: No Family/Social History - Physician Review Nursing Documentation Reviewed: Yes Family/Social History: Unknown Family HX Smoking Status: Former Smoker Hx Alcohol Use: Yes Hx Substance Use: No Allergies/Home Meds Allergies/Adverse Reactions: Allergies amoxicillin Allergy (Severe, Verified 04/21/17 13:25) ANGIOEDEMA Home Medications: Home Meds Medication Instructions Recorded Confirmed Sertraline [Zoloft] 200 mg PO DAILY 09/26/14 04/21/17 Levocetirizine Dihydrochloride 1 tab PO DAILY 09/24/16 04/21/17 [Xyzal] Alprazolam [Xanax] 8 mg PO QID 04/21/17 04/21/17 Atorvastatin [Lipitor] 40 mg PO DAILY 04/21/17 04/21/17 Lactobacillus Acidophilus 0 mg PO 04/21/17 [Acidophilus Probiotic] Review of Systems - Physician Review All systems were reviewed & negative as marked: Yes - Review of Systems Constitutional: Fevers Eyes: Normal ENT: Normal Respiratory: Cough Cardiovascular: Normal. absent: Chest Pain Gastrointestinal: Diarrhea, Nausea, Vomiting. absent: Abdominal Pain Genitourinary Female: Normal. absent: Dysuria, Frequency, Hematuria, Urine Output Changes Musculoskeletal: Normal. absent: Back Pain Skin: Normal. absent: Rash Neurological: Headache. absent: Dizziness Endocrine: Normal Hemo/Lymphatic: Normal Psychiatric: Normal Physical Exam Vital Signs Reviewed: Yes Vital Signs Temp Pulse Resp BP Pulse Ox 04/30/17 06:59 80 19 112/53 L 98 04/30/17 05:16 100.0 F H 90 18 116/74 99 Temperature: Afebrile Blood Pressure: Normal Pulse: Regular Respiratory Rate: Normal Appearance: Positive for: Well-Appearing, Non-Toxic, Comfortable Pain Distress: None Mental Status: Positive for: Alert and Oriented X 3 - Systems Exam Head: Present: Atraumatic, Normocephalic Pupils: Present: PERRL Extroacular Muscles: Present: EOMI Conjunctiva: Present: Normal Ears: Present: Normal, NORMAL TM, Normal Canal. No: Erythema, TM Bulging, Fluid Mouth: Present: Moist Mucous Membranes Pharnyx: Present: Normal. No: ERYTHEMA, EXUDATE, TONSILS ENLARGED, Peritonsilar Swelling, Uvular Deviation, Muffled/Hoarse Voice, Strider, Soft Palate/Uvular Edema Nose (External): Present: Atraumatic Nose (Internal): Present: Normal Inspection Neck: Present: Normal Range of Motion. No: Meningeal Signs, MIDLINE TENDERNESS , Paraspinal Tenderness Respiratory/Chest: Present: Clear to Auscultation, Good Air Exchange. No: Respiratory Distress, Accessory Muscle Use Cardiovascular: Present: Regular Rate and Rhythm, Normal S1, S2. No: Murmurs Abdomen: Present: Tenderness (upper abdominal), Normal Bowel Sounds. No: Distention, Peritoneal Signs Back: Present: Normal Inspection. No: CVA Tenderness, Midline Tenderness, Paraspinal Tenderness Upper Extremity: Present: Normal Inspection. No: Cyanosis, Edema Lower Extremity: Present: Normal Inspection. No: Edema Neurological: Present: GCS=15, CN II-XII Intact, Speech Normal, Motor Func Grossly Intact, Normal Sensory Function Skin: Present: Warm, Dry, Normal Color. No: Rashes Psychiatric: Present: Alert, Oriented x 3, Normal Insight, Normal Concentration Medical Decision Making ED Course and Treatment: 04/30/17 05:45 Impression: 51 year old female complaining of subjective fever, chills, cough, nausea, vomiting, diarrhea,abdominal discomfort and headache since yesterday. Plan: -- Labs -- Rapid influenza -- IV fluids -- Reglan -- Benadryl -- Tylenol -- Reassess and disposition - Lab Interpretations Lab Results: 04/30/17 05:40 04/30/17 05:40 Lab Results 04/30/17 05:40: Influenza Typ A,B (EIA) Pos for influenza a H 04/30/17 05:40: WBC 6.8, RBC 4.12, Hgb 12.1, Hct 37.1, MCV 90.0, MCH 29.4, MCHC 32.6, RDW 13.8, Plt Count 190, MPV 9.4 04/30/17 05:40: Sodium 139, Potassium 3.5 L, Chloride 104, Carbon Dioxide 26, Anion Gap 13, BUN 11, Creatinine 1.1, Est GFR ( Amer) > 60, Est GFR (Non- Af Amer) 53, Random Glucose 128 H, Calcium 9.6, Total Bilirubin 0.8, AST 82 H, ALT 84 H, Alkaline Phosphatase 131 H, Total Protein 7.7, Albumin 4.3, Globulin 3.4, Albumin/Globulin Ratio 1.2 - RAD Interpretation Radiology Orders: 04/30/17 06:51 ABDOMEN COMPLETE [US] Stat - Medication Orders Current Medication Orders: Oseltamivir Phosphate (Tamiflu Cap) 75 mg PO ONCE ONE PRN Reason: Protocol Stop: 04/30/17 07:10 Discontinued Medications Acetaminophen (Tylenol 325mg Tab) 650 mg PO STAT STA Stop: 04/30/17 05:57 Last Admin: 04/30/17 06:11 Dose: 650 mg Diphenhydramine HCl (Benadryl) 25 mg IVP ONCE ONE Stop: 04/30/17 05:57 Last Admin: 04/30/17 06:15 Dose: Not Given Non-Admin Reason: Patient Refused Sodium Chloride (Sodium Chloride 0.9%) 1,000 mls @ 999 mls/hr IV .Q1H1M STA Stop: 04/30/17 06:56 Last Admin: 04/30/17 06:10 Dose: 999 mls/hr eMAR Start Stop Document 04/30/17 06:10 CNR (Rec: 04/30/17 06:11 CNR [id number]) Intravenous Solution Start Date 04/30/17 Start Time 06:11 Metoclopramide HCl (Reglan) 10 mg IVP ONCE ONE Stop: 04/30/17 05:57 Last Admin: 04/30/17 06:11 Dose: 10 mg IVP Administration Document 04/30/17 06:11 CNR (Rec: 04/30/17 06:12 CNR [id number]) Charges for Administration # of IVP Administrations 1 - Transfer of Care Patient signed out to Dr:: Tobin Pending Radiology Studies:: Pending labs/ultrasound/reassess/final disposition - Scribe Statement The provider has reviewed the documentation as recorded by the Mary Martinez Provider Scribe Attestation: All medical record entries made by the Scribe were at my direction and personally dictated by me. I have reviewed the chart and agree that the record accurately reflects my personal performance of the history, physical exam, medical decision making, and the department course for this patient. I have also personally directed, reviewed, and agree with the discharge instructions and disposition. Disposition/Present on Arrival - Present on Arrival Any Indicators Present on Arrival: No History of DVT/PE: No History of Uncontrolled Diabetes: No Urinary Catheter: No History of Decub. Ulcer: No History Surgical Site Infection Following: None - Disposition Have Diagnosis and Disposition been Completed?: No Diagnosis: Abdominal pain, Headache, Influenza Disposition Time: 07:00 Patient Problems: Current Active Problems Problem Status Onset Abdominal pain Acute Headache Acute Condition: STABLE Forms: [employer] ([place] Citizen)
[2017-04-30] MEDS ORDERED: Sodium Chloride 0.9% 1,000 ML IV STA (05:56)
[2017-04-30] MEDS: DiphenhydrAMINE 50 mg/ml Inj IVP ONE ×2 (06:12→06:15)
[2017-04-30 06:25] LABS: HEMOGLOBIN 12.1 g/dL (12.0-16.0); MEAN CORPUSCULAR HEMOGLOBIN 29.4 pg (25.0-35.0); MEAN CORPUSCULAR HGB CONC 32.6 g/dl (31.0-37.0); MEAN PLATELET VOLUME 9.4 fl (7.0-11.0); RBC 4.12 10^6/uL (3.5-6.1); RED CELL DISTRIBUTION WIDTH 13.8 % (11.5-14.5); WHITE BLOOD COUNT 6.8 10^3/ul (4.5-11.0)
[2017-04-30 06:31] LABS: ALB/GLOB RATIO 1.2 (1.1-1.8); ALBUMIN 4.3 g/dL (3.0-4.8); ALT/SGPT 84 U/L (7-56); AST/SGOT 82 U/L (14-36); BLOOD UREA NITROGEN 11 mg/dL (7-21); CALCIUM 9.6 mg/dL (8.4-10.5); GFR AFRICAN-AMERICAN > 60; GFR NON-AFRICAN AMERICAN 53
--- NOTE | 2017-04-30 07:15 | ED PDOC ---
Physical Exam Vital Signs Reviewed: Yes Vital Signs Temp Pulse Resp BP Pulse Ox 04/30/17 09:11 98.8 F 79 19 109/52 L 94 L 04/30/17 06:59 80 19 112/53 L 98 04/30/17 05:16 100.0 F H 90 18 116/74 99 Temperature: Febrile Blood Pressure: Normal Pulse: Regular Respiratory Rate: Normal Appearance: Positive for: Well-Appearing Pain Distress: None Mental Status: Positive for: Alert and Oriented X 3 - Systems Exam Head: Present: Atraumatic, Normocephalic Pupils: Present: PERRL Extroacular Muscles: Present: EOMI Conjunctiva: Present: Normal Mouth: Present: Other (dry mucous membranes, no drooling/stridor, no exudate/ lesions) Pharnyx: Present: Normal Nose (External): Present: Atraumatic Neck: Present: Normal Range of Motion Respiratory/Chest: Present: Clear to Auscultation, Good Air Exchange Cardiovascular: Present: Regular Rate and Rhythm, Normal S1, S2 Abdomen: Present: Normal Bowel Sounds Upper Extremity: Present: Normal Inspection, Normal ROM, NORMAL PULSES, Neurovascularly Intact Lower Extremity: Present: Normal Inspection, NORMAL PULSES, Normal ROM, Neurovascularly Intact, Capillary Refill < 2 s. No: Edema Neurological: Present: GCS=15, CN II-XII Intact, Speech Normal Skin: Present: Warm, Normal Color Psychiatric: Present: Alert, Oriented x 3, Normal Insight, Normal Concentration Medical Decision Making ED Course and Treatment: 04/30/17 07:14 Patient signed out to me by Dr. Ko. Patient complaining of subjective fever associated with chills, cough, nausea, vomiting, diarrhea, and abdominal discomfort. Currently awaiting patient to be taken for Ultrasound. 04/30/2017 07:29 Abdominal Ultrasound FINDINGS: Examination limited by bowel gas. LIVER: Measures 19.9 cm in sagittal dimension and appears otherwise unremarkable. No focal hepatic mass identified. The main portal vein appears patent with normal directional flow. No intrahepatic bile duct dilatation. GALLBLADDER: Cholecystectomy. COMMON BILE DUCT: Measures 7mm. PANCREAS: Not well visualized. RIGHT KIDNEY: Measures 11.2 x 5.2 x 5.1 cm. No obstructing calculus or hydronephrosis identified. LEFT KIDNEY: Measures 10.2 x 4.9 x 5.4 cm. No obstructing calculus or hydronephrosis identified. SPLEEN: Measures approximately 14.2 cm. AORTA: Not well-visualized. IVC: Not well-visualized. OTHER FINDINGS: None IMPRESSION: Examination limited by bowel gas. Cholecystectomy. Mild hepatomegaly. Dictator: Dionna Young MD 04/30/17 10:44 9:15am - pt states she feels lousy and fatigued with some headaches, + nausea 9:45am - pt is feeling improved, tolerated liquid/po challenge pt is doing well currently pt is made aware of her medical results pt is encouraged fluids pt will f/u as directed pt will be discharged home Re-evaluation Time: 08:59 Reassessment Condition: Re-examined - Lab Interpretations Lab Results: 04/30/17 05:40 04/30/17 05:40 Lab Results 04/30/17 05:40: Influenza Typ A,B (EIA) Pos for influenza a H 04/30/17 05:40: WBC 6.8, RBC 4.12, Hgb 12.1, Hct 37.1, MCV 90.0, MCH 29.4, MCHC 32.6, RDW 13.8, Plt Count 190, MPV 9.4 04/30/17 05:40: Sodium 139, Potassium 3.5 L, Chloride 104, Carbon Dioxide 26, Anion Gap 13, BUN 11, Creatinine 1.1, Est GFR ( Amer) > 60, Est GFR (Non- Af Amer) 53, Random Glucose 128 H, Calcium 9.6, Total Bilirubin 0.8, AST 82 H, ALT 84 H, Alkaline Phosphatase 131 H, Total Protein 7.7, Albumin 4.3, Globulin 3.4, Albumin/Globulin Ratio 1.2 I have reviewed the lab results: Yes Interpretation: Abnormal lab values (+ FLU) - RAD Interpretation Radiology Orders: 04/30/17 06:51 ABDOMEN COMPLETE [US] Stat IMPRESSION: Examination limited by bowel gas. Cholecystectomy. Mild hepatomegaly. Mc Kay Stitcher: Radiologist - Medication Orders Current Medication Orders: Discontinued Medications Acetaminophen (Tylenol 325mg Tab) 650 mg PO STAT STA Stop: 04/30/17 05:57 Last Admin: 04/30/17 06:11 Dose: 650 mg Diphenhydramine HCl (Benadryl) 25 mg IVP ONCE ONE Stop: 04/30/17 05:57 Last Admin: 04/30/17 06:15 Dose: Not Given Non-Admin Reason: Patient Refused Famotidine (Pepcid) 20 mg PO STAT STA Stop: 04/30/17 09:07 Last Admin: 04/30/17 09:28 Dose: 20 mg Sodium Chloride (Sodium Chloride 0.9%) 1,000 mls @ 999 mls/hr IV .Q1H1M STA Stop: 04/30/17 06:56 Last Admin: 04/30/17 06:10 Dose: 999 mls/hr eMAR Start Stop Document 04/30/17 06:10 CNR (Rec: 04/30/17 06:11 CNR [id number]) Intravenous Solution Start Date 04/30/17 Start Time 06:11 Ketorolac Tromethamine (Toradol) 30 mg IVP STAT STA Stop: 04/30/17 09:07 Last Admin: 04/30/17 09:27 Dose: 30 mg MAR Pain Assessment Document 04/30/17 09:27 [email or web address] (Rec: 04/30/17 09:27 [email or web address] [id number]) Pain Reassessment Is this a pain reassessment? No Sleep Is patient sleeping during reassessment? No Presence of Pain Presence of Pain Yes Pain Scale Used Pain Scale Used Numeric Location Pain Location Body Cook Relief Description Description Constant Intensity of Pain at present 7 Pain Behavior Facial Grimacing Aggravating Factors Changing Position Alleviating Factors/Management Position Change Techniques Alleviating Factors Medication IVP Administration Document 04/30/17 09:27 [email or web address] (Rec: 04/30/17 09:27 [email or web address] [id number]) Charges for Administration # of IVP Administrations 1 Metoclopramide HCl (Reglan) 10 mg IVP ONCE ONE Stop: 04/30/17 05:57 Last Admin: 04/30/17 06:11 Dose: 10 mg IVP Administration Document 04/30/17 06:11 CNR (Rec: 04/30/17 06:12 CNR [id number]) Charges for Administration # of IVP Administrations 1 Ondansetron HCl (Zofran Inj) 4 mg IVP ONCE ONE Stop: 04/30/17 09:07 Last Admin: 04/30/17 09:28 Dose: 4 mg IVP Administration Document 04/30/17 09:28 [email or web address] (Rec: 04/30/17 09:28 [email or web address] [id number]) Charges for Administration # of IVP Administrations 1 Oseltamivir Phosphate (Tamiflu Cap) 75 mg PO ONCE ONE PRN Reason: Protocol Stop: 04/30/17 07:10 Last Admin: 04/30/17 07:36 Dose: 75 mg - Terellibe Statement The provider has reviewed the documentation as recorded by the Mary Owens Provider Scribe Attestation: All medical record entries made by the Terellibpoonam were at my direction and personally dictated by me. I have reviewed the chart and agree that the record accurately reflects my personal performance of the history, physical exam, medical decision making, and the department course for this patient. I have also personally directed, reviewed, and agree with the discharge instructions and disposition. Disposition/Present on Arrival - Present on Arrival Any Indicators Present on Arrival: No History of DVT/PE: No History of Uncontrolled Diabetes: No Urinary Catheter: No History of Decub. Ulcer: No History Surgical Site Infection Following: None - Disposition Have Diagnosis and Disposition been Completed?: Yes Diagnosis: Abdominal pain, Headache, Influenza, Dehydration Disposition: HOME/ ROUTINE Disposition Time: 10:37 Patient Plan: Discharge Patient Problems: Current Active Problems Problem Status Onset Abdominal pain Acute Headache Acute Influenza Acute Dehydration Acute Condition: STABLE Discharge Instructions (ExitCare): Influenza (ED), Dehydration (ED) Print Language: MALAGASY Additional Instructions: Make sure to see your doctor in 1-2 days DRINK PLENTY OF FLUIDS take your medications as prescribed RETURN TO ED IF worse pain, cant breath, persistent vomiting, high fever >101- 102 for hours, altered behavior, unable to urinate, heavy/persistent bleeding, passing out, chest pain, or other medical emergencies Prescriptions: Ibuprofen [Motrin] 400 mg PO QID #30 tab Ondansetron ODT [Zofran ODT] 4 mg PO TID #10 odt Oseltamivir Phosphate [Tamiflu] 75 mg PO BID #9 capsule Referrals: PCP,NO [Non-Staff] - Follow up with primary Forms: [employer] (Telugu), WORK NOTE
--- NOTE | 2017-04-30 07:31 | US ---
HISTORY: pain COMPARISON: CT abdomen and pelvis without contrast performed 08/30/16 TECHNIQUE: Sonographic evaluation of the abdomen. FINDINGS: Examination limited by bowel gas. LIVER: Measures 19.9 cm in sagittal dimension and appears otherwise unremarkable. No focal hepatic mass identified. The main portal vein appears patent with normal directional flow. No intrahepatic bile duct dilatation. GALLBLADDER: Cholecystectomy. COMMON BILE DUCT: Measures 7 mm. PANCREAS: Not well visualized. RIGHT KIDNEY: Measures 11.2 x 5.2 x 5.1 cm. No obstructing calculus or hydronephrosis identified. LEFT KIDNEY: Measures 10.2 x 4.9 x 5.4 cm. No obstructing calculus or hydronephrosis identified. SPLEEN: Measures approximately 14.2 cm. AORTA: Not well-visualized. IVC: Not well visualized. OTHER FINDINGS: None. IMPRESSION: Examination limited by bowel gas. Cholecystectomy. Mild hepatomegaly.
[2017-04-30 09:12] VITALS: TEMP 98.8
[2017-04-30 11:14] VITALS: BP 110/82; PULSE 80; RESP 18; O2SAT 98
== END 2017-04-30 11:15 | disposition home or self-care (01) ==
LOC: ED 05:11
DX: J11.1 Influenza due to unidentified influenza virus with other respiratory manifestations (principal); R51 Headache; R10.9 Unspecified abdominal pain; Z87.891 Personal history of nicotine dependence
CPT/HCPCS: 76700; 80053; 85027; 87804; 96374; 96375; 99285; J1885; J2405; J2765; J7040

== ENCOUNTER 2017-06-27 16:12 | Emergency (ER) | payer OTHER ==
[2017-06-27 16:12] VITALS: BMI 27.8
[2017-06-27 17:53] VITALS: BP 144/83; PULSE 86; RESP 18; TEMP 98; O2SAT 98
--- NOTE | 2017-06-27 18:23 | ED PDOC ---
Arrival/HPI - General Chief Complaint: Cough, Cold, Congestion Time Seen by Provider: 06/27/17 16:16 Historian: Patient - History of Present Illness Narrative History of Present Illness (Text): 06/27/17 16:36 51 year old female, with past medical history of asthma, diverticulitis and migraines, presents to the Emergency department complaining of sore throat and cough for past few days. Patient informs worsening intermittent cough with production of white phlegm today. Patient denies any recent travel or sick contact at home. Patient is compliant with flu shot this year. Patient denies any fever, chills, nausea, vomiting, diarrhea, abdominal pain, chest pain, shortness of breath or any other complaints. PMD: Dr. Emery Time/Duration: < week Symptom Onset: Gradual Symptom Course: Unchanged Activities at Onset: Light Context: Home Past Medical History - Provider Review Nursing Documentation Reviewed: Yes - Infectious Disease Hx of Infectious Diseases: None - Tetanus Immunization Tetanus Immunization: Unknown - Cardiac Hx Cardiac Disorders: No - Pulmonary Hx Asthma: Yes - Neurological Hx Neurological Disorder: No - HEENT Hx HEENT Disorder: No - Renal Hx Renal Disorder: No - Endocrine/Metabolic Hx Endocrine Disorders: No - Hematological/Oncological Hx Blood Disorders: No - Integumentary Hx Dermatological Disorder: No - Musculoskeletal/Rheumatological Hx Musculoskeletal Disorders: No - Gastrointestinal Hx Diverticulitis: Yes Hx Gastrointestinal Ulcer: Yes Hx Pancreatitis: Yes - Genitourinary/Gynecological Hx Genitourinary Disorders: No - Psychiatric Hx Anxiety: Yes Hx Depression: Yes Hx Substance Use: No - Surgical History Hx Cholecystectomy: Yes Other/Comment: colon resection - Anesthesia Hx Anesthesia: Yes Hx Anesthesia Reactions: No Hx Malignant Hyperthermia: No - Suicidal Assessment Feels Threatened In Home Enviroment: No Family/Social History - Physician Review Nursing Documentation Reviewed: Yes Family/Social History: No Known Family HX Smoking Status: Former Smoker Hx Alcohol Use: Yes Hx Substance Use: No Allergies/Home Meds Allergies/Adverse Reactions: Allergies amoxicillin Allergy (Severe, Verified 06/27/17 16:17) ANGIOEDEMA Home Medications: Home Meds Medication Instructions Recorded Confirmed Sertraline [Zoloft] 200 mg PO DAILY 09/26/14 06/27/17 Levocetirizine Dihydrochloride 1 tab PO DAILY 09/24/16 06/27/17 [Xyzal] Alprazolam [Xanax] 8 mg PO QID 04/21/17 06/27/17 Atorvastatin [Lipitor] 40 mg PO DAILY 04/21/17 06/27/17 Review of Systems - Physician Review All systems were reviewed & negative as marked: Yes - Review of Systems Constitutional: Normal. absent: Fevers Eyes: Normal ENT: Sore Throat Respiratory: Cough (with production of white phlegm). absent: SOB Cardiovascular: Normal. absent: Chest Pain Gastrointestinal: Normal. absent: Abdominal Pain, Diarrhea, Nausea, Vomiting Genitourinary Female: Normal Musculoskeletal: Normal Skin: Normal Neurological: Normal Endocrine: Normal Hemo/Lymphatic: Normal Psychiatric: Normal Physical Exam Vital Signs Reviewed: Yes Vital Signs Temp Pulse Resp BP Pulse Ox 06/27/17 17:52 98.0 F 86 18 144/83 98 Temperature: Afebrile Blood Pressure: Normal Pulse: Regular Respiratory Rate: Normal Appearance: Positive for: Well-Appearing, Non-Toxic, Comfortable Pain Distress: None Mental Status: Positive for: Alert and Oriented X 3 - Systems Exam Head: Present: Atraumatic, Normocephalic Pupils: Present: PERRL Extroacular Muscles: Present: EOMI Conjunctiva: Present: Normal Mouth: Present: Moist Mucous Membranes Pharnyx: Present: Normal, ERYTHEMA (mild). No: EXUDATE Neck: Present: Normal Range of Motion Respiratory/Chest: Present: Clear to Auscultation, Good Air Exchange. No: Respiratory Distress, Accessory Muscle Use Cardiovascular: Present: Regular Rate and Rhythm, Normal S1, S2. No: Murmurs Abdomen: Present: Normal Bowel Sounds. No: Tenderness, Distention, Peritoneal Signs Back: Present: Normal Inspection Upper Extremity: Present: Normal Inspection. No: Cyanosis, Edema Lower Extremity: Present: Normal Inspection. No: Edema Neurological: Present: GCS=15, CN II-XII Intact, Speech Normal Skin: Present: Warm, Dry, Normal Color. No: Rashes Psychiatric: Present: Alert, Oriented x 3, Normal Insight, Normal Concentration Medical Decision Making ED Course and Treatment: 06/27/17 16:35 Impression: 51 year old female presents to the Emergency department for sore throat and cough. Plan: -- CXR -- Reassess and disposition Progress Notes: - RAD Interpretation Radiology Orders: 06/27/17 16:31 CHEST PORTABLE [RAD] Stat - Scribe Statement The provider has reviewed the documentation as recorded by the Scribe Mary Helm. All medical record entries made by the Scribe were at my direction and personally dictated by me. I have reviewed the chart and agree that the record accurately reflects my personal performance of the history, physical exam, medical decision making, and the department course for this patient. I have also personally directed, reviewed, and agree with the discharge instructions and disposition. Disposition/Present on Arrival - Present on Arrival Any Indicators Present on Arrival: No History of DVT/PE: No History of Uncontrolled Diabetes: No Urinary Catheter: No History of Decub. Ulcer: No History Surgical Site Infection Following: None - Disposition Have Diagnosis and Disposition been Completed?: Yes Diagnosis: Pharyngitis Disposition: HOME/ ROUTINE Disposition Time: 18:20 Patient Problems: Current Active Problems Problem Status Onset Pharyngitis Acute Condition: GOOD Discharge Instructions (ExitCare): Sore Throat, Adult (DC) Additional Instructions: Thank you for letting us take care of you today. The emergency medical care you received today was directed at your acute symptoms. If you were prescribed any medication, please fill it and take as directed. It may take several days for your symptoms to resolve. Return to the Emergency Department if your symptoms worsen, do not improve, or if you have any other problems. Please contact your doctor or call one of the physicians/clinics you have been referred to that are listed on the Patient Visit Information form that is included in your discharge packet. Bring any paperwork you were given at discharge with you along with any medications you are taking to your follow up visit. Our treatment cannot replace ongoing medical care by a primary care provider (PCP) outside of the emergency department. Thank you for allowing the [facility] team to be part of your care today. Follow up with your primary care doctor next week for re-evaluation and further management. Prescriptions: Azithromycin [Zithromax] 250 mg PO DAILY #6 tab Ondansetron ODT [Zofran ODT] 4 mg PO Q8 PRN #15 odt PRN Reason: Nausea/Vomiting Referrals: Ranjith Emery MD [Primary Care Provider] - Follow up with primary Forms: [employer] ([place]ani)
--- NOTE | 2017-06-28 09:19 | RAD ---
HISTORY: r/o infiltrate COMPARISON: No prior. FINDINGS: LUNGS: No active pulmonary disease. PLEURA: No significant pleural effusion identified, no pneumothorax apparent. CARDIOVASCULAR: Normal. OSSEOUS STRUCTURES: No significant abnormalities. VISUALIZED UPPER ABDOMEN: Normal. OTHER FINDINGS: None. IMPRESSION: No acute cardiopulmonary disease appreciated.
== END 2017-06-27 18:37 | disposition home or self-care (01) ==
LOC: ED 16:12
DX: J02.9 Acute pharyngitis, unspecified (principal); Z87.891 Personal history of nicotine dependence